=== PATIENT | female | born 1960 | race American Indian/Alaskan Native ===

== ENCOUNTER 2016-10-25 10:03 | Outpatient (CLI) | payer BC ==
[2016-10-25 10:38] LABS: Basophils % (Auto) 1.3 % (0.0-1.8); Eosinophils % (Auto) 1.9 % (0.0-4.3); Hematocrit 38.8 % (30.3-42.9); Hemoglobin 13.2 gm/dl (10.1-14.3); Mean Corpuscular HGB Conc 34 % (30-34); Mean Corpuscular Hemoglobin 31 pg (28-32); Mean Corpuscular Volume 90 fl (79-97); Platelet Count 224 K/mm3 (140-440); Red Blood Count 4.33 M/mm3 (3.65-5.03); Red Cell Distribution Width 13.3 % (13.2-15.2); White Blood Count 4.6 K/mm3 (4.5-11.0)
[2016-10-25 10:47] LABS: Alanine Aminotransferase 17 units/L (7-56); Albumin 4.3 g/dL (3.9-5); Albumin/Globulin Ratio 1.2 %; Alkaline Phosphatase 55 units/L (35-129); Anion Gap 14 mmol/L; BUN/Creatinine Ratio 16.66; Bilirubin,Total 0.6 mg/dL (0.1-1.2); Blood Urea Nitrogen 15 mg/dL (7-17); Calcium 9.9 mg/dL (8.4-10.2); Carbon Dioxide 31 mmol/L (22-30); Chloride 99.5 mmol/L (98-107); Cholesterol 251 mg/dL (50-199); Glucose 91 mg/dL (65-100); HDL Cholesterol 69 mg/dL (40-59); LDL Cholesterol,Direct 170 mg/dL (50-130); Potassium 3.8 mmol/L (3.6-5.0); Sodium 141 mmol/L (137-145); Total Protein 7.9 g/dL (6.3-8.2); Triglycerides 64 mg/dL (2-149)
== END 2016-10-25 10:04 | disposition home or self-care (01) ==
LOC: LAB 10:03
PROVIDERS: ATTEND Internal Medicine
DX: I10 Essential (primary) hypertension (principal); R53.81 Other malaise; R53.83 Other fatigue; E78.2 Mixed hyperlipidemia; E03.8 Other specified hypothyroidism
CPT/HCPCS: 36415; 80053; 80061; 84439; 84443; 85025

== ENCOUNTER 2018-07-23 13:54 | Outpatient (CLI) | payer BC ==
--- NOTE | 2018-07-24 09:37 | Mammography Report ---
BILATERAL DIGITAL SCREENING MAMMOGRAM with CAD and DIGITAL BREAST TOMOSYNTHESIS (DBT) : 07/23/18 14:30:00 CLINICAL: Routine screening. COMPARISON:07/27/14 FINDINGS: The breasts are heterogeneously dense, which may obscure small masses. No mass, architectural distortion or suspicious calcifications. IMPRESSION: No mammographic evidence of malignancy. BI-RADS CATEGORY: 1 - - Negative RECOMMENDATION: Routine mammographic screening in one year. COMMENT: Patient follow-up letters are generated by our [employer] application.
== END 2018-07-23 13:55 | disposition home or self-care (01) ==
LOC: SPVWC 13:54
PROVIDERS: ATTEND Obstetrics & Gynecology
DX: Z12.31 Encounter for screening mammogram for malignant neoplasm of breast (principal)
CPT/HCPCS: 77063; 77067

== ENCOUNTER 2018-12-03 10:35 | Emergency (ER) | payer BC ==
--- NOTE | 2018-12-03 11:20 | Emergency Department Report ---
Blank Doc - Documentation Documentation: This is a 58-year-old female that presents with bilateral lower ext swelling. Stated has PCP and was put on lasix but is not working. Denies any CP. Stated has some shortness of breathe when walking. This initial assessment diagnostic orders/clinical plan/treatment(s) is/are subject to change based on patient's health status, clinical progression and re- assessment by fellow clinical providers in the ED. Further treatment and workup at subsequent clinical providers discretion. Patient/guardians urged not to elope from ED s their condition may be serious if not clinically assessed and managed. Initial orders include: 1-Patient sent to [facility] for further evaluation and treatment 2- Labs 3- UA
[2018-12-03 11:22] VITALS: BP 124/78
--- NOTE | 2018-12-03 12:08 | Emergency Department Report ---
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 The patient has a history of hypertension for which she used to be on Exforge. This caused a rash so she was switched to Toprol and Norvasc. This was not working well enough for her blood pressure so she was switched to Procardia and Norvasc. She believes that these medications have been causing the edema. She is actually taking the Procardia to treat her blood pressure. She was given some Lasix by her primary care physician to try and diurese but has not been working sufficiently. For the past week she has been taking the Lasix for a total of 80 mg. Her primary care physician is Dr. Tolbert. She spoke to her shaker out, Dr. Keller, who told her to come to the emergency department for further evaluation. Patient denies any chest pain but does complain of some intermittent shortness of breath with exertion. No recent travel or sick contacts at home. ED Past Medical Hx - Past Medical History Previous Medical History?: Yes Hx Hypertension: Yes Additional medical history: hypothyroid - Surgical History Past Surgical History?: Yes Additional Surgical History: sinus surgery. hysterectomy. x 3 - Social History Smoking Status: Never Smoker Substance Use Type: None - Medications Home Medications: Home Medications Medication Instructions Recorded Confirmed Last Taken Type Hydralazine HCl 50 mg PO BID #60 tablet 12/03/18 Unknown Rx Losartan [Cozaar] 100 mg PO QDAY #30 tablet 12/03/18 Unknown Rx ED Review of Systems ROS: Stated complaint: SWOLLEN FEET/ANKLE Other details as noted in HPI Comment: All other systems reviewed and negative Constitutional: denies: chills, fever Eyes: denies: eye pain, vision change ENT: denies: ear pain, throat pain Respiratory: SOB with exertion. denies: cough Cardiovascular: edema. denies: chest pain Gastrointestinal: denies: abdominal pain, vomiting Genitourinary: denies: dysuria, discharge Musculoskeletal: denies: back pain, arthralgia Skin: denies: rash, lesions Neurological: denies: headache, weakness Physical Exam - Physical Exam Vital Signs: Vital Signs 12/03/18 11:19 Temperature 97.8 F Pulse Rate 82 Respiratory 20 Rate Blood Pressure 124/78 O2 Sat by Pulse 99 Oximetry Physical Exam: GENERAL: The patient is well-developed well-nourished. HEENT: Normocephalic. Atraumatic. Patient has moist mucous membranes. EYES: Extraocular motions are intact. Pupils are equal and reactive to light bilaterally. NECK: Supple. Trachea is midline. CHEST/LUNGS: Clear to auscultation. There is no respiratory distress noted. HEART/CARDIOVASCULAR: Regular. There is no tachycardia. There is no obvious murmur. ABDOMEN: Abdomen is soft, nontender. Patient has normal bowel sounds. There is no abdominal distention. SKIN: Skin is warm and dry. There is mild to moderate bilateral lower extremity nonpitting swelling. No skin color change, warmth or erythema. NEURO: The patient is awake, alert, and oriented. The patient is cooperative. The patient has no focal neurologic deficits. The patient has normal speech. MUSCULOSKELETAL: There is no tenderness or deformity. There is no limitation range of motion. There is no evidence of acute injury. ED Course Vital Signs 12/03/18 11:19 Temperature 97.8 F Pulse Rate 82 Respiratory 20 Rate Blood Pressure 124/78 O2 Sat by Pulse 99 Oximetry ED Medical Decision Making - Lab Data Result diagrams: 12/03/18 11:52 12/03/18 11:52 - EKG Data -: EKG Interpreted by Me EKG shows normal: sinus rhythm, axis (left axis deviation), intervals, QRS complexes (LVH), ST-T waves Rate: normal - EKG Data When compared to previous EKG there are: previous EKG unavailable Interpretation: LVH - Radiology Data Radiology results: report reviewed, image reviewed interpreted by me: Chest x-ray does not show any pneumothorax, pleural effusion, pneumonia or ob vious focal consolidation. EXAM: CT ANGIO CHEST HISTORY: SOB, elevated dimer TECHNIQUE: CTA of the chest was performed after the administration of intravenous contrast. Rotating MIPS were included. 100 cc of Omnipaque 350 intravenous contrast were given. Reconstructions were included in the coronal and sagittal planes. PRIORS: None. FINDINGS: Pulmonary arteries and thoracic aorta: The study is adequate for diagnostic purposes. No central or segmental pulmonary embolism. The thoracic aorta is normal in caliber. Lungs and airways: No pleural effusion. No airspace consolidation. The airways are patent. No bronchiectasis. There is a 5 millimeter right middle lobe pulmonary nodule on series 3, image 134. There is a 4 millimeter right middle lobe pulmonary nodule on series 3, image 141. There is a 5 millimeter left lower lobe pulmonary nodule on series 3, image 173. There is a 6 millimeter left lower lobe pulmonary nodule on series 3, image 101. Mediastinum, heart, pericardium: No mediastinal lymphadenopathy. No cardiac chamber enlargement. No pericardial effusion. Thoracic inlet, chest wall, axilla: No chest wall masses. The visualized portions of the thyroid gland demonstrate no focal lesion. No axillary lymphadenopathy. Upper abdomen: Cholelithiasis is seen. The common bile duct is dilated measuring up to 7 millimeters. Liver is diffusely heterogeneous in attenuation with numerous focal rounded hyper enhancing lesions scattered throughout the parenchyma. These lesions measure between 3 and 5 millimeters. Bones: Degenerative changes are seen in the spine. IMPRESSION: 1. No central or segmental pulmonary embolism. 2. Multiple bilateral pulmonary nodules. In a low risk patient, recommend followup chest CT at 3-6 months then consider chest CT at 18-24 months. In a high risk patient, recommend followup chest CT at 3-6 months then at 18-24 months. 3. Extensive tiny hyper attenuating liver lesions which are nonspecific although may represent regenerative nodules. Diffuse metastatic disease is not completely excluded. 4. Cholelithiasis with mildly dilated common bile duct. If there is clinical concern for biliary obstruction, further evaluation with MRCP should be considered. Transcribed By: Dictated By: LAKISHA MCPHERSON MD Electronically Authenticated By: LAKISHA MCPHERSON MD Signed Date/Time: 12/03/18 1650 EXAM: VL VENOUS DUPLEX LE BILAT HISTORY: LE pain and swelling TECHNIQUE: Grayscale and color and spectral Doppler ultrasound imaging of the bilateral lower extremities was performed for the purposes of assessing for deep venous thrombosis. PRIORS: None. FINDINGS: No evidence of deep venous thrombosis is seen within the common femoral through the posterior tibial and peroneal veins. Normal compression and color flow is seen throughout the venous system of the bilateral lower extremities. Normal augmentation was seen. IMPRESSION: Negative for bilateral lower extremity deep venous thrombosis. Transcribed By: Dictated By: LAKISHA MCPHERSON MD Electronically Authenticated By: LAKISHA MCPHERSON MD Signed Date/Time: 12/03/18 1440 - Medical Decision Making Patient presents to the emergency department with complaint of bilateral lower extremity edema. She, and her shaker out Dr Keller, think it is related to the hydrochlorothiazide and/or Procardia that she was previously on. The patient, who has contacted her shaker out, he is recommended patient to start on losartan 100 mg per day and hydralazine 50 mg twice daily. The patient's labs were mostly unremarkable except for a slightly elevated dimer level. Normal CBC, metabolic panel and proBNP. Patient was given a dose of Lasix here via IV with some diuresis. Because of the occasional shortness of breath, the lower extremity swelling, the patient had a bilateral venous Doppler that was negative for DVT. She also had a CT angiography of the chest that did not show any pulmonary embolism but did show the incidental findings of pulmonary nodules and some cholelithiasis. It also read that there is a borderline enlargement of the bile duct. The patient has no elevation in her LFTs, alkaline phosphatase, bilirubin. She has no abdominal pain, back pain. It does not appear high suspicion for choledocholithiasis and there are no signs of cholecystitis. The patient will be discharged home with the new blood pressure medications. She will follow up with her primary care physician, shaker out and claims correspondence clerk. She will return to the ER with any worsening of her symptoms or any acute distress. - Differential Diagnosis CHF, venous stasis, DVT, PE Critical Care Time: No Critical care attestation.: If time is entered above; I have spent that time in minutes in the direct care of this critically ill patient, excluding procedure time. ED Disposition Clinical Impression: Pulmonary nodules, Asymptomatic cholelithiasis, Bilateral lower extremity edema Disposition: DC-01 TO HOME OR SELFCARE Is pt being admited?: No Condition: Stable Instructions: Cholelithiasis (ED), Leg Edema (ED), Pulmonary Nodules (ED) Additional Instructions: Please follow-up with your primary care physician, claims correspondence clerk and shaker out. Return to the emergency Department with any worsening of your symptoms or any acute distress. You are starting two different new blood pressure medications, losartan and hydralazine. Keep a blood pressure log. Prescriptions: Hydralazine HCl 50 mg PO BID #60 tablet Losartan [Cozaar] 100 mg PO QDAY #30 tablet Referrals: SYDNEY TOLBERT MD [Primary Care Provider] - 3-5 Days AYLA OLGUIN MD [Staff Physician] - 3-5 Days CLARISSE KELLER MD [Staff Physician] - 3-5 Days Time of Disposition: 17:07
[2018-12-03 12:32] LABS: Basophils # (Auto) 0.1 K/mm3 (0.0-0.1); Basophils % (Auto) 1.2 % (0.0-1.8); Eosinophils # (Auto) 0.1 K/mm3 (0.0-0.4); Eosinophils % (Auto) 2.3 % (0.0-4.3); Hematocrit 41.5 % (30.3-42.9); Hemoglobin 14.1 gm/dl (10.1-14.3); Lymphocytes # (Auto) 2.9 K/mm3 (1.2-5.4); Lymphocytes % (Auto) 49.1 % (13.4-35.0); Mean Corpuscular HGB Conc 34 % (30-34); Mean Corpuscular Volume 89 fl (79-97); Monocytes # (Auto) 0.4 K/mm3 (0.0-0.8); Monocytes % (Auto) 7.4 % (0.0-7.3); Platelet Count 275 K/mm3 (140-440); Red Blood Count 4.64 M/mm3 (3.65-5.03); Red Cell Distribution Width 14.9 % (13.2-15.2)
[2018-12-03 12:37] LABS: Alanine Aminotransferase 23 units/L (7-56); Albumin 4.4 g/dL (3.9-5); BUN/Creatinine Ratio 16; Blood Urea Nitrogen 13 mg/dL (7-17); Calcium 10.1 mg/dL (8.4-10.2); Hemolysis Index 27
[2018-12-03] MEDS ORDERED: LASIX IV ONE (12:43)
--- NOTE | 2018-12-03 14:01 | XRay Report ---
ROUTINE CHEST, TWO VIEWS: HISTORY: Short of breath. The trachea, heart, mediastinal contour, lung camacho and bony thorax are unremarkable. IMPRESSION: Unremarkable chest x-ray.
--- NOTE | 2018-12-03 14:40 | Vascular Lab Report ---
FINAL REPORT EXAM: VL VENOUS DUPLEX LE BILAT HISTORY: LE pain and swelling TECHNIQUE: Grayscale and color and spectral Doppler ultrasound imaging of the bilateral lower extrem ities was performed for the purposes of assessing for deep venous thrombosis. PRIORS: None. FINDINGS: No evidence of deep venous thrombosis is seen within the common femoral through the posterior tibial and peroneal veins. Normal compression and color flow is seen throughout the venous system of the tara ateral lower extremities. Normal augmentation was seen. IMPRESSION: Negative for bilateral lower extremity deep venous thrombosis.
--- NOTE | 2018-12-03 16:50 | Cat Scan Report ---
FINAL REPORT EXAM: CT ANGIO CHEST HISTORY: SOB, elevated dimer TECHNIQUE: CTA of the chest was performed after the administration of intravenous contrast. Rotating MIPS were included. 100 cc of Omnipaque 350 intravenous contrast were given. Reconstructions were included in the coronal and sagittal planes. PRIORS: None. FINDINGS: Pulmonary arteries and thoracic aorta: The study is adequate for diagnostic purposes. No central or s egmental pulmonary embolism. The thoracic aorta is normal in caliber. Lungs and airways: No pleural effusion. No airspace consolidation. The airways are patent. No bronchi ectasis. There is a 5 millimeter right middle lobe pulmonary nodule on series 3, image 134. There is a 4 millimeter right middle lobe pulmonary nodule on series 3, image 141. There is a 5 millimeter lef t lower lobe pulmonary nodule on series 3, image 173. There is a 6 millimeter left lower lobe pulmona ry nodule on series 3, image 101. Mediastinum, heart, pericardium: No mediastinal lymphadenopathy. No cardiac chamber enlargement. No p ericardial effusion. Thoracic inlet, chest wall, axilla: No chest wall masses. The visualized portions of the thyroid glan d demonstrate no focal lesion. No axillary lymphadenopathy. Upper abdomen: Cholelithiasis is seen. The common bile duct is dilated measuring up to 7 millimeters. Liver is diffusely heterogeneous in attenuation with numerous focal rounded hyper enhancing lesions scattered throughout the parenchyma. These lesions measure between 3 and 5 millimeters. Bones: Degenerative changes are seen in the spine. IMPRESSION: 1. No central or segmental pulmonary embolism. 2. Multiple bilateral pulmonary nodules. In a low risk patient, recommend followup chest CT at 3-6 mo nths then consider chest CT at 18-24 months. In a high risk patient, recommend followup chest CT at 3 -6 months then at 18-24 months. 3. Extensive tiny hyper attenuating liver lesions which are nonspecific although may represent regene rative nodules. Diffuse metastatic disease is not completely excluded. 4. Cholelithiasis with mildly dilated common bile duct. If there is clinical concern for biliary obst ruction, further evaluation with MRCP should be considered.
== END 2018-12-03 17:41 | disposition home or self-care (01) ==
LOC: ED 10:35
DX: R60.0 Localized edema (principal); R91.1 Solitary pulmonary nodule; K80.20 Calculus of gallbladder without cholecystitis without obstruction; I10 Essential (primary) hypertension; E03.9 Hypothyroidism, unspecified; Z88.6 Allergy status to analgesic agent; Z88.0 Allergy status to penicillin; Z88.8 Allergy status to other drugs, medicaments and biological substances; Z90.710 Acquired absence of both cervix and uterus
CPT/HCPCS: 36415; 71046; 71275; 80053; 83880; 84484; 85025; 85379; 93005; 93010; 93970; 96374; 99284; J1940; Q9967

== ENCOUNTER 2018-12-07 00:40 | Inpatient (IN) | payer BC ==
--- NOTE | 2018-12-07 02:06 | XRay Report ---
FINAL REPORT PROCEDURE: XR CHEST 1V AP TECHNIQUE: Chest radiograph anteroposterior view. CPT 54083 HISTORY: Dyspnea COMPARISON: No prior studies are available for comparison. FINDINGS: Heart: Normal. Mediastinum/Vessels: Normal. Lungs/Pleural space: Normal. Bony thorax: No acute osseous abnormality. Life support devices: None. IMPRESSION: No acute cardiopulmonary abnormality.
[2018-12-07 02:17] LABS: Basophils # (Auto) 0.1 K/mm3 (0.0-0.1); Basophils % (Auto) 1.2 % (0.0-1.8); Eosinophils # (Auto) 0.2 K/mm3 (0.0-0.4); Eosinophils % (Auto) 2.6 % (0.0-4.3); Hemoglobin 14.4 gm/dl (10.1-14.3); Lymphocytes # (Auto) 2.4 K/mm3 (1.2-5.4); Lymphocytes % (Auto) 32.5 % (13.4-35.0); Mean Corpuscular HGB Conc 34 % (30-34); Mean Corpuscular Volume 92 fl (79-97); Monocytes # (Auto) 0.6 K/mm3 (0.0-0.8); Monocytes % (Auto) 8.2 % (0.0-7.3); Platelet Count 205 K/mm3 (140-440); Red Blood Count 4.68 M/mm3 (3.65-5.03)
[2018-12-07 02:25] LABS: BUN/Creatinine Ratio 16; Blood Urea Nitrogen 14 mg/dL (7-17); Calcium 9.4 mg/dL (8.4-10.2); Hemolysis Index 43
[2018-12-07] MEDS ORDERED: NITRO-BID 2% TP ONE (02:29)
[2018-12-07] MEDS ORDERED: SUBLIMAZE IV ONE (02:29)
[2018-12-07] MEDS ORDERED: ZOFRAN IV ONE (02:29)
[2018-12-07] MEDS ORDERED: PLAVIX PO ONE (02:30)
--- NOTE | 2018-12-07 02:35 | Emergency Department Report ---
HPI - General Chief Complaint: Dyspnea/Respdistress Time Seen by Provider: 12/07/18 02:13 - HPI HPI: Room 26 The patient is a 58-year-old female presenting with a chief complaint chest pain and shortness of breath. The patient states she was recent started on a new blood pressure medication which includes losartan and hydralazine. The patient states Friday (12/06/2018) at noon she took her medication as prescribed and began to feel dizzy and nauseous with a headache. Patient states her heart rate increased and her blood pressure was found to be 158/79. Patient states her symptoms began to resolve at approximately 15:00. The patient states again this evening at approximately 23:00 she took her medication as prescribed and she then developed substernal chest tightness associated with shortness of breath and nausea. The patient states the chest tightness has been intermittent. Patient states she felt near syncopal. EMS was called. Patient states her blood pressure was found to be in the 200s systolic popping her to come to the ED. Patient states she still has chest tightness and gives it a score of 4/10. Patient states she's never had a cardiac catheterization Location: Chest Duration: [See above] Quality: Tightness Severity: [See above] Modifying factors: [see above] Context: [see above] Mode of transportation: [not driving] ED Past Medical Hx - Past Medical History Previous Medical History?: Yes Hx Hypertension: Yes Additional medical history: hypothyroid - Surgical History Past Surgical History?: Yes Additional Surgical History: sinus surgery. hysterectomy. x 3 - Family History Family history: no significant - Social History Smoking Status: Never Smoker Substance Use Type: None (denies illicit drug use), Alcohol (occasional) - Medications Home Medications: Home Medications Medication Instructions Recorded Confirmed Last Taken Type Hydralazine HCl 50 mg PO BID #60 tablet 12/03/18 Unknown Rx Losartan [Cozaar] 100 mg PO QDAY #30 tablet 12/03/18 Unknown Rx ED Review of Systems ROS: Stated complaint: CHEST PAIN/SOB Other details as noted in HPI Constitutional: denies: diaphoresis Eyes: denies: eye pain ENT: denies: throat pain Respiratory: shortness of breath Cardiovascular: chest pain, palpitations Endocrine: no symptoms reported Gastrointestinal: nausea. denies: vomiting Genitourinary: denies: dysuria Musculoskeletal: denies: back pain Neurological: headache Physical Exam - Physical Exam Vital Signs: Vital Signs 12/07/18 12/07/18 12/07/18 01:00 01:07 01:16 Temperature 98.7 F Pulse Rate 102 H 98 H 93 H Respiratory 13 16 12 Rate Blood Pressure 171/76 Blood Pressure 171/76 [Right] O2 Sat by Pulse 98 Oximetry 12/07/18 12/07/18 01:31 01:45 Temperature Pulse Rate 91 H 101 H Respiratory 13 19 Rate Blood Pressure 171/76 176/84 Blood Pressure [Right] O2 Sat by Pulse Oximetry Physical Exam: GENERAL: The patient is well-developed well-nourished female lying on stretcher not appearing to be in acute distress. [] HEENT: Normocephalic. Atraumatic. Extraocular motions are intact. Patient has moist mucous membranes. NECK: Supple. Trachea midline CHEST/LUNGS: Clear to auscultation. There is no respiratory distress noted. HEART/CARDIOVASCULAR: Regular. There is no tachycardia. There is no gallop rub or murmur. ABDOMEN: Abdomen is soft, nontender. Patient has normal bowel sounds. There is no abdominal distention. SKIN: There is no rash. There is no edema. There is no diaphoresis. NEURO: The patient is awake, alert, and oriented. The patient is cooperative. The patient has normal speech MUSCULOSKELETAL: There is no evidence of acute injury. ED Course Vital Signs 12/07/18 12/07/18 12/07/18 01:00 01:07 01:16 Temperature 98.7 F Pulse Rate 102 H 98 H 93 H Respiratory 13 16 12 Rate Blood Pressure 171/76 Blood Pressure 171/76 [Right] O2 Sat by Pulse 98 Oximetry 12/07/18 12/07/18 01:31 01:45 Temperature Pulse Rate 91 H 101 H Respiratory 13 19 Rate Blood Pressure 171/76 176/84 Blood Pressure [Right] O2 Sat by Pulse Oximetry ED Medical Decision Making - Lab Data Result diagrams: 12/07/18 01:27 12/07/18 01:27 Laboratory Tests 12/07/18 12/07/18 12/07/18 01:27 01:27 01:27 WBC 7.5 RBC 4.68 Hgb 14.4 H Hct 43.0 H MCV 92 MCH 31 MCHC 34 RDW 15.0 Plt Count 205 Lymph % (Auto) 32.5 [place] % (Auto) 8.2 H Eos % (Auto) 2.6 Baso % (Auto) 1.2 Lymph # 2.4 [place] # 0.6 Eos # 0.2 Baso # 0.1 Seg Neutrophils % 55.5 Seg Neutrophils # 4.2 Sodium 140 Potassium 3.8 Chloride 108.9 H BUN 14 Creatinine 0.9 Estimated GFR > 60 BUN/Creatinine Ratio 16 Glucose 131 H Calcium 9.4 Troponin T < 0.010 - EKG Data -: EKG Interpreted by Me EKG shows normal: sinus rhythm Rate: tachycardia (102 bpm) - EKG Data When compared to previous EKG there are: previous EKG unavailable Interpretation: other (no ischemic changes seen) - Radiology Data Radiology results: report reviewed (chest x-ray), image reviewed (chest x-ray) interpreted by me: Chest x-ray-no focal infiltrates, no pneumothorax Findings [facility] [address] [place] [address] XRay Report Signed Patient: KIRBY MARQUEZ MR#: [id number] : 1960 Acct:[id number] Age/Sex: 58 / F ADM Date: 12/07/18 Loc: ED Attending Dr: Ordering Physician: ED MD ALEXIA Date of Service: 12/07/18 Procedure(s): XR chest 1V ap Accession Number(s): [id number] cc: ED MD ALEXIA Fluoro Time In Minutes: FINAL REPORT PROCEDURE: XR CHEST 1V AP TECHNIQUE: Chest radiograph anteroposterior view. CPT 36534 HISTORY: Dyspnea COMPARISON: No prior studies are available for comparison. FINDINGS: Heart: Normal. Mediastinum/Vessels: Normal. Lungs/Pleural space: Normal. Bony thorax: No acute osseous abnormality. Life support devices: None. IMPRESSION: No acute cardiopulmonary abnormality. Transcribed By: CO Dictated By: MAGALYS TAYLOR MD Electronically Authenticated By: MAGALYS TAYLOR MD Signed Date/Time: 12/07/18205 DD/ 4 TD/TT: 12/07/18204 - Differential Diagnosis adverse reaction to medication, ACS, pericarditis, GERD Critical care attestation.: If time is entered above; I have spent that time in minutes in the direct care of this critically ill patient, excluding procedure time. ED Disposition Clinical Impression: Chest pain Disposition: DC-09 OP ADMIT IP TO THIS HOSP Is pt being admited?: Yes Does the pt Need Aspirin: No Condition: Fair Instructions: Chest Pain (ED) Referrals: PRIMARY CARE,MD [Primary Care Provider] - 3-5 Days Time of Disposition: 02:40 (hospitalist paged (Dr. Missy Woods))
[2018-12-07] MEDS ORDERED: TYLENOL PO PRN (04:16)
[2018-12-07] MEDS ORDERED: ZOFRAN IV PRN (04:16)
[2018-12-07] MEDS ORDERED: MORPHINE IV PRN (04:16)
[2018-12-07] MEDS ORDERED: SODIUM CHLORIDE FLUSH SYRINGE 10 ML IV PRN (04:16)
--- NOTE | 2018-12-07 04:20 | History and Physical Report ---
History of Present Illness Date of examination: 12/07/18 History of present illness: 58 year old woman with a history of hypertension, hypothyroidism, emergency room for evaluation. She was taken off hydrochlorothiazide and started on hydralazine by Dr. Keller which she started taking Friday, she took 2 doses last yesterday, every 12 hours apart. She developed dizziness, palpitation, nausea after the second dose and also chest pain. She also complaining of right jaw pain, her symptoms have improved Review of systems Constitutional: no weight loss, chills, fever Ears, eyes, nose, mouth and throat: no nasal congestion, no nasal discharge, no sinus pressure, no vision change, no red eye. Neck: No neck pain or rigidity. Cardiovascular: + palpitations, chest pain Respiratory: no cough, shortness of breath Gastrointestinal: no hematochezia, abdominal pain Genitourinary : no frequency , no hematuria Musculoskeletal: no joint swelling or muscle ache Integumentary: no rash, no pruritis Neurological: no parathesias, no focal weakness Endocrine: no cold or heat intolerance, no polyuria or polydipsia Hematologic/Lymphatic: no easy bruising, no easy bleeding, no gland swelling Allergic/Immunologic: no urticaria, no angioedema. PAST MEDICAL HISTORY: hypertension, hypothyroidism, PAST SURGICAL HISTORY: Hysterectomy, sinus, 4 SOCIAL HISTORY: Denies alcohol, drugs, tobacco FAMILY HISTORY: Hypertension Medications and Allergies Allergies Allergy/AdvReac Type Severity Reaction Status Date / Time aspirin Allergy Dizziness Verified 12/03/18 10:45 meperidine HCl [From Demerol] Allergy Hives Verified 12/03/18 10:45 Penicillins Allergy Unknown Verified 12/03/18 10:45 HCTZ Allergy Hives Uncoded 12/03/18 10:45 Home Medications Medication Instructions Recorded Confirmed Last Taken Type Hydralazine HCl 50 mg PO BID #60 tablet 12/03/18 Unknown Rx Losartan [Cozaar] 100 mg PO QDAY #30 tablet 12/03/18 Unknown Rx Exam - Physical Exam Narrative exam: General Apperance: The patient lying in bed, breathing comfortable HEENT: Normocephalic, atraumatic. Pupils equally round and reactive to light, EOMI, no sclericterus or JVD or thyromegaly or nodule. , no carotid bruit, mucous membranes moist, no exudate or erythema Heart: S1-S2, regular is rhythm Lungs: Clear to auscultation bilaterally, breathing comfortable Abdomen: Positive bowel sounds, soft, nontender, nondistended, no organomegaly Extremities: No edema cyanosis clubbing Skin: no rash, nodule, warm and dry Neuro: cranial nerves 2-12 intact, speech is fluent, motor/sensory intact - Constitutional Vitals: Temp Pulse Resp BP Pulse Ox 98.7 F 90 15 147/83 98 12/07/18 01:07 12/07/18 02:41 12/07/18 02:41 12/07/18 02:15 12/07/18 01:07 Results - Labs CBC & Chem 7: 12/07/18 05:59 12/07/18 01:27 Labs: Abnormal lab results 12/07/18 12/07/18 Range/Units 01:27 01:27 Hgb 14.4 H (10.1-14.3) gm/dl Hct 43.0 H (30.3-42.9) % [place] % (Auto) 8.2 H (0.0-7.3) % Chloride 108.9 H (98-107) mmol/L Carbon Dioxide 21 L D (22-30) mmol/L Glucose 131 H (65-100) mg/dL - Imaging and Cardiology EKG: image reviewed Chest x-ray: image reviewed Assessment and Plan Assessment Side effects of hydralazine Hypertension Hypothyroidism Plan Admit to medicine Check cardiac enzymes, consult cardiology d/c hydralazine DVT prophylaxis, IV morphine
[2018-12-07 06:08] LABS: Basophils # (Auto) 0.1 K/mm3 (0.0-0.1); Basophils % (Auto) 1.1 % (0.0-1.8); Eosinophils # (Auto) 0.1 K/mm3 (0.0-0.4); Eosinophils % (Auto) 2.1 % (0.0-4.3); Hematocrit 37.6 % (30.3-42.9); Hemoglobin 12.8 gm/dl (10.1-14.3); Lymphocytes # (Auto) 2.5 K/mm3 (1.2-5.4); Mean Corpuscular HGB Conc 34 % (30-34); Mean Corpuscular Volume 91 fl (79-97); Monocytes # (Auto) 0.5 K/mm3 (0.0-0.8); Monocytes % (Auto) 8.3 % (0.0-7.3); Platelet Count 234 K/mm3 (140-440); Red Blood Count 4.15 M/mm3 (3.65-5.03); Red Cell Distribution Width 15.1 % (13.2-15.2)
[2018-12-07 06:49] LABS: BUN/Creatinine Ratio 14; Blood Urea Nitrogen 13 mg/dL (7-17); Calcium 9.1 mg/dL (8.4-10.2); Hemolysis Index 8
[2018-12-07] MEDS: COZAAR PO SCH (10:39)
[2018-12-07] MEDS: LOVENOX SUB-Q SCH (10:40)
[2018-12-07] MEDS: SODIUM CHLORIDE FLUSH SYRINGE 10 ML IV SCH ×2 (10:41→21:15)
--- NOTE | 2018-12-07 10:50 | Consultation ---
History of Present Illness Consult date: 12/07/18 Requesting physician: MARIANNE ALDRICH Consult reason: chest pain History of present illness: The pt is a 58 year old woman with a history of hypertension and hypothyroidism. She is followed by Dr. Keller. She presented for evaluation of possible allergic reaction to new prescription medication. She was recently taken off HCTZ due to hives and started on hydralazine and losartan by Dr. Keller. She started taking these new medications on Friday and was feeling well until yesterday evening when she developed diaphoresis, dizziness, palpitations, headache, nausea and chest pain after taking the second dose of hydralazine. She describes her chest pain as a left-sided squeezing pain which lasted for a few hours and is currently resolved. She also c/o BLE swelling for the past several days. Past History Past Medical History: hypertension, hypothyroidism Medications and Allergies Allergies Allergy/AdvReac Type Severity Reaction Status Date / Time aspirin Allergy Dizziness Verified 12/03/18 10:45 meperidine HCl [From Demerol] Allergy Hives Verified 12/03/18 10:45 Penicillins Allergy Unknown Verified 12/03/18 10:45 HCTZ Allergy Hives Uncoded 12/03/18 10:45 Home Medications Medication Instructions Recorded Confirmed Last Taken Type Hydralazine HCl 50 mg PO BID #60 tablet 12/03/18 12/07/18 Unknown Rx Losartan [Cozaar] 100 mg PO QDAY #30 tablet 12/03/18 12/07/18 Unknown Rx Active Meds: Active Medications Acetaminophen (Tylenol) 650 mg PO Q4H PRN PRN Reason: Pain MILD(1-3)/Fever >100.5/MARTINEZ Enoxaparin Sodium (Lovenox) 40 mg SUB-Q QDAY [facility] Last Admin: 12/07/18 10:40 Dose: 40 mg Documented by: Losartan Potassium (Cozaar) 100 mg PO QDAY [facility] Last Admin: 12/07/18 10:39 Dose: 100 mg Documented by: Morphine Sulfate (Morphine) 2 mg IV Q4H PRN PRN Reason: Pain, Moderate (4-6) Ondansetron HCl (Zofran) 4 mg IV Q8H PRN PRN Reason: Nausea And Vomiting Sodium Chloride (Sodium Chloride Flush Syringe 10 Ml) 10 ml IV BID [facility] Last Admin: 12/07/18 10:41 Dose: 10 ml Documented by: Sodium Chloride (Sodium Chloride Flush Syringe 10 Ml) 10 ml IV PRN PRN PRN Reason: LINE FLUSH Review of Systems Constitutional: sweats, no weight loss, no weight gain, no fever, no chills Ears, nose, mouth and throat: no ear pain, no nose pain, no sinus pressure, no sinus pain Cardiovascular: chest pain, palpitations, edema (BLE), lightheadedness, high blood pressure, no orthopnea, no syncope, no leg edema Respiratory: no cough, no shortness of breath, no dyspnea on exertion, no congestion, no wheezing, no pain on inspiration Gastrointestinal: nausea, no abdominal pain, no vomiting, no diarrhea, no constipation, no change in bowel habits Genitourinary Female: no pelvic pain, no flank pain, no dysuria, no urinary frequency, no urgency Musculoskeletal: no neck stiffness, no neck pain, no shooting arm pain, no arm numbness/tingling, no low back pain, no shooting leg pain Integumentary: no rash, no pruritis, no redness, no sores, no wounds Neurological: headaches, no head injury, no paralysis, no weakness, no parathesias, no numbness, no tingling, no seizures, no syncope Psychiatric: no anxiety Endocrine: no cold intolerance, no heat intolerance Hematologic/Lymphatic: no easy bruising, no easy bleeding Physical Examination Vital Signs Pulse Resp 102 H 13 12/07/18 01:00 12/07/18 01:00 General appearance: no acute distress HEENT: Positive: PERRL, Normocephaly, Mucus Membranes Moist Neck: Positive: neck supple Cardiac: Positive: Reg Rate and Rhythm, S1/S2 Lungs: Positive: clear to auscultation Neuro: Positive: Grossly Intact Abdomen: Positive: Soft. Negative: Tender Skin: Negative: Rash, Wound Musculoskeletal: No Pain Extremities: Present: edema (trace BLE) Results 12/07/18 05:59 12/07/18 05:59 CBC 12/07/18 12/07/18 Range/Units 01:27 05:59 WBC 7.5 5.9 (4.5-11.0) K/mm3 RBC 4.68 4.15 (3.65-5.03) M/mm3 Hgb 14.4 H 12.8 (10.1-14.3) gm/dl Hct 43.0 H 37.6 (30.3-42.9) % Plt Count 205 234 (140-440) K/mm3 Lymph # 2.4 2.5 (1.2-5.4) K/mm3 [place] # 0.6 0.5 (0.0-0.8) K/mm3 Eos # 0.2 0.1 (0.0-0.4) K/mm3 Baso # 0.1 0.1 (0.0-0.1) K/mm3 Comprehensive Metabolic Panel 12/07/18 12/07/18 Range/Units 01:27 05:59 Sodium 140 140 (137-145) mmol/L Potassium 3.8 3.9 (3.6-5.0) mmol/L Chloride 108.9 H 108.8 H (98-107) mmol/L Carbon Dioxide 21 L D 22 (22-30) mmol/L BUN 14 13 (7-17) mg/dL Creatinine 0.9 0.9 (0.7-1.2) mg/dL Glucose 131 H 107 H (65-100) mg/dL Calcium 9.4 9.1 (8.4-10.2) mg/dL - Imaging and Cardiology Echo: pending EKG: report reviewed, image reviewed EKG interpretations - Telemetry EKG Rhythm: Sinus Rhythm - EKG Sinus rhythms and dysrhythmias: sinus rhythm Assessment and Plan Pt presented with atypical chest pain after developing suspected allergic reaction to hydralazine. Chest pain currently resolved. AMI ruled out. F/u echo. The patient has been seen in conjunction with Dr. Gambino who agrees with the assessment and plan of care. - Patient Problems (1) Allergic reaction caused by a drug Current Visit: Yes Status: Acute (2) Chest pain Current Visit: Yes Status: Acute (3) Headache Current Visit: Yes Status: Acute (4) HTN (hypertension) Current Visit: Yes Status: Chronic (5) History of hypothyroidism Current Visit: Yes Status: Chronic
--- NOTE | 2018-12-07 22:20 | Event Note ---
Date: 12/07/18 Patient seen and examined. No acute distress at this time. Resting comfortably, Cardiology following. continue current management
--- NOTE | 2018-12-08 10:09 | Progress Note ---
Assessment and Plan Pt presented with atypical chest pain after developing suspected allergic reaction to hydralazine. Chest pain currently resolved. AMI ruled out. echo reviewed - EF 55-60%, no significant abnormalities. Currently stable cardiac status. Pt may discharge home from cardiology standpoint on current cardiac regimen. Recommend pt follow up in our office with Dr. Keller within 1-2 weeks of hospital discharge ([phone]). The patient has been seen in conjunction with Dr. Gambino who agrees with the assessment and plan of care. - Patient Problems (1) Allergic reaction caused by a drug Current Visit: Yes Status: Acute (2) Chest pain Current Visit: Yes Status: Acute (3) Headache Current Visit: Yes Status: Acute (4) HTN (hypertension) Current Visit: Yes Status: Chronic (5) History of hypothyroidism Current Visit: Yes Status: Chronic Subjective Date of service: 12/08/18 Principal diagnosis: cp Interval history: pt resting in bed, no current complaints. states she is feeling much better today. Objective Last Vital Signs Temp 97.9 F 12/08/18 04:28 Pulse 67 12/08/18 08:36 Resp 20 12/08/18 08:36 BP 128/71 12/08/18 04:28 Pulse Ox 98 12/08/18 04:28 - Physical Examination General: No Apparent Distress HEENT: Positive: PERRL, Normocephaly, Mucus Membranes Moist Neck: Positive: neck supple Cardiac: Positive: Reg Rate and Rhythm, S1/S2 Lungs: Positive: clear to auscultation Neuro: Positive: Grossly Intact Abdomen: Positive: Soft. Negative: Tender Skin: Negative: Rash, Wound Musculoskeletal: No Pain Extremities: Present: edema (trace BLE) - Imaging and Cardiology EKG: report reviewed, image reviewed Echo: report reviewed - Telemetry EKG Rhythm: Sinus Rhythm - EKG Sinus rhythms and dysrhythmias: sinus rhythm
[2018-12-08] MEDS: COZAAR PO SCH (10:17)
[2018-12-08] MEDS: LOVENOX SUB-Q SCH (10:18)
[2018-12-08] MEDS: SODIUM CHLORIDE FLUSH SYRINGE 10 ML IV SCH (10:19)
--- NOTE | 2018-12-08 13:26 | Discharge Summary ---
Providers - Providers Date of Admission: 12/07/18 06:12 Date of discharge: 12/08/18 Attending physician: KESHA HUSSEIN 12/07/18 04:16 Consult to Physician [CONS] Routine Comment: Consulting Provider: CLARISSE KELLER Physician Instructions: Reason For Exam: cp Primary care physician: SYDNEY TOLBERT Hospitalization Condition: Fair Hospital course: Patient is 58 year old with a history of hypertension, hypothyroidism. She pressented to ED for evaluation. Patient states she was taken off hydrochlorothiazide and started on hydralazine by Dr. Keller which she started taking few days prior to presentation, she took 2 doses 12 hours apart, as prescribed. She developed dizziness, palpitation, nausea after the second dose and also chest pain. She also complaining of right jaw pain. she therefore came in for evaluation. Initital Troponin was normal. Hydralazibe was discontinued. She was admitted, evaluated byCardiology. Symptoms resolved and she was discharged home following day 12/08/18 to follow as outpatient. She was advised not to continue Hydralazine. Total time spent on discharge,31 mins Disposition: DC-01 TO HOME OR SELFCARE - Discharge Diagnoses (1) Allergic reaction caused by a drug Status: Acute (2) Chest pain Status: Acute (3) HTN (hypertension) Status: Chronic (4) History of hypothyroidism Status: Chronic Core Measure Documentation - Palliative Care Palliative Care/ Comfort Measures: Not Applicable - Core Measures Any of the following diagnoses?: none Exam - Constitutional Vitals: Temp Pulse Resp BP Pulse Ox 98.0 F 68 18 141/75 98 12/08/18 11:36 12/08/18 11:36 12/08/18 11:36 12/08/18 11:36 12/08/18 11:36 Plan Activity: no restrictions Diet: low fat, low cholesterol, low salt Additional Instructions: 1.Follow up with PCP in 1 week. 2.Follow up with Dr. Keller, Cardiology in 1 week. Follow up with: PRIMARY CARE, [Referring] - 3-5 Days Forms: Work/School Release Form
[2018-12-08 14:50] VITALS: BP 135/68
== END 2018-12-08 15:28 | disposition home or self-care (01) | DRG 103 ==
LOC: ED 00:40 → 4A 06:12 → 3A 07:10
PROVIDERS: ADMIT Internal Medicine; ATTEND Internal Medicine
DX: R51 Headache (principal); T46.5X5A Adverse effect of other antihypertensive drugs, initial encounter; R07.89 Other chest pain; I10 Essential (primary) hypertension; T78.40XA Allergy, unspecified, initial encounter; E03.9 Hypothyroidism, unspecified; Z90.710 Acquired absence of both cervix and uterus; Z82.49 Family history of ischemic heart disease and other diseases of the circulatory system; Z88.0 Allergy status to penicillin; Z88.8 Allergy status to other drugs, medicaments and biological substances; Y92.098 Other place in other non-institutional residence as the place of occurrence of the external cause
CPT/HCPCS: 36415; 71045; 80048; 84484; 85025; 93005; 93010; 93306; G0378; J1650; J2405; J3010

== ENCOUNTER 2018-12-23 10:35 | Outpatient (CLI) | payer BC ==
--- NOTE | 2018-12-23 13:31 | Ultrasound Report ---
ULTRASOUND ABDOMEN LIMITED: TECHNIQUE: Transabdominal ultrasound with color Doppler interrogation. HISTORY: Dilated common bile duct. COMPARISON: none. FINDINGS: LIVER: Normal. BILIARY SYSTEM: The gallbladder is partially contracted and contains multiple shadowing gallstones. No secondary findings of acute cholecystitis. The common bile duct is dilated up to 7.5 mm. PANCREAS: Normal. RIGHT KIDNEY: Normal. PROXIMAL AORTA: Normal. ASCITES: None. IMPRESSION: Cholelithiasis. Dilated common bile duct measuring 7.5 mm although no obvious choledocholithiasis is demonstrated. Consider further evaluation with MRCP.
== END 2018-12-23 10:36 | disposition home or self-care (01) ==
LOC: US 10:35
PROVIDERS: ATTEND Internal Medicine
DX: K80.20 Calculus of gallbladder without cholecystitis without obstruction (principal); K83.8 Other specified diseases of biliary tract; I10 Essential (primary) hypertension; Z90.710 Acquired absence of both cervix and uterus; J45.909 Unspecified asthma, uncomplicated
CPT/HCPCS: 76705

== ENCOUNTER 2018-12-31 11:40 | Outpatient (CLI) | payer BC ==
[2018-12-31 12:19] LABS: Blood Urea Nitrogen 13 mg/dL (7-17)
--- NOTE | 2018-12-31 14:27 | Magnetic Resonance Report ---
MR ABDOMEN WITH AND WITHOUT CONTRAST HISTORY: Dilated common bile duct. TECHNIQUE: Multisequence, multiplanar MRI without contrast. Thin and thick slab MRCP images. Radial MRCP images. Postcontrast dynamic imaging. FINDINGS: Right upper quadrant ultrasound dated 12/23/18 was again reviewed. MRCP images demonstrate a normal-appearing common bile duct on today's exam. There is no evidence for filling defect or abnormal dilatation. The CBD measures 4.4 mm on MRCP. There are however numerous filling defects in the gallbladder consistent with gallstones. No evidence for biliary dilatation or inflammation. The liver, pancreas, spleen, adrenal glands, aorta and visualized bowel loops are unremarkable. Normal appendix. The kidneys are normal size and position. There are a few tiny millimetric cysts in both kidneys. No hydronephrosis. No evidence for ascites, adenopathy or inflammatory changes. No abnormal enhancement is demonstrated following IV gadolinium. IMPRESSION: Cholelithiasis. The common bile duct is normal on today's MRCP images. Recently passed gallstone? Tiny renal cysts. Otherwise, unremarkable MR abdomen with and without contrast.
== END 2018-12-31 11:41 | disposition home or self-care (01) ==
LOC: MRI 11:40
PROVIDERS: ATTEND Internal Medicine
DX: K80.20 Calculus of gallbladder without cholecystitis without obstruction (principal); N28.1 Cyst of kidney, acquired; I10 Essential (primary) hypertension; E03.9 Hypothyroidism, unspecified; J45.909 Unspecified asthma, uncomplicated; Z90.710 Acquired absence of both cervix and uterus
CPT/HCPCS: 36415; 74183; 82565; 84520; A9577

== ENCOUNTER 2019-05-26 15:00 | Emergency (ER) | payer BC ==
[2019-05-26 15:10] VITALS: BP 166/92
--- NOTE | 2019-05-26 15:10 | Event Note ---
ED Screening Note Date of service: 05/26/19 Time: 15:06 ED Screening Note: This is a 59 y.o. F. that presents with left lateral foot pain. 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 Patient reports pain is worse with weight bearing. This initial assessment/diagnostic orders/clinical plan/treatment(s) is/are subject to change based on patients health status, clinical progression and re- assessment by fellow clinical providers in the ED. Further treatment and workup at subsequent clinical providers discretion. Patient/guardian urged not to elope from the ED as their condition may be serious if not clinically assessed and managed. Initial orders include: XR of left foot
--- NOTE | 2019-05-26 15:40 | XRay Report ---
Left foot, 3 views INDICATION: Lateral left foot pain for one day. COMPARISON: None. IMPRESSION: No acute osseous or soft tissue abnormality. No significant DJD. Signer Name: Kvng Almazan Jr, MD Signed: 05/26/2019 3:36 PM Workstation Name: [id number]
[2019-05-26] MEDS ORDERED: IBUPROFEN PO ONE (16:49)
--- NOTE | 2019-05-26 16:54 | Emergency Department Report ---
ED Lower Extremity HPI - General Chief Complaint: Extremity Injury, Lower Stated Complaint: LT FOOT INJURY Time Seen by Provider: 05/26/19 15:05 Source: patient Mode of arrival: Ambulatory Limitations: No Limitations - History of Present Illness Initial Comments: This is a 59-year-old female nontoxic, well nourished in appearance, no acute signs of distress presents to the ED with c/o of left foot pain x1 day. Patient stated that she hit her foot at work. Patient denies any other trauma. Patient denies any numbness, tingling, fever, chills, nausea, vomiting, chest pain, shortness of breath, headache, stiff neck. Patient denies any joint swelling or joint redness. Patient denies decreased range of motion. Patient stated has decreased gait due to pain. Patient stated allergies to aspirin, Meperidine, and PCN, HCTZ but denies any allergies to motrin. -: This evening Injury: Foot: Left Place: work Severity: mild Severity scale (0 -10): 8 Improves With: immobilization Worsens With: weight bearing, palpation Context: direct blow Associated Symptoms: swelling, able to partially bear weight, ambulatory. denies: snap/pop sensation, numbness, tingling, unable to bear weight - Related Data Previous Rx's Medication Instructions Recorded Last Taken Type Losartan [Cozaar] 100 mg PO QDAY #30 tablet 12/03/18 Unknown Rx Acetaminophen/Codeine [Tylenol 1 tab PO Q6H PRN #12 tab 05/26/19 Unknown Rx /Codeine # 3 tab] Ibuprofen [Motrin] 600 mg PO Q8H PRN #20 tablet 05/26/19 Unknown Rx Allergies Allergy/AdvReac Type Severity Reaction Status Date / Time aspirin Allergy Dizziness Verified 12/03/18 10:45 meperidine HCl [From Demerol] Allergy Hives Verified 12/03/18 10:45 Penicillins Allergy Unknown Verified 12/03/18 10:45 HCTZ Allergy Hives Uncoded 12/03/18 10:45 ED Review of Systems ROS: Stated complaint: LT FOOT INJURY Other details as noted in HPI Constitutional: denies: chills, fever Eyes: denies: eye pain, eye discharge, vision change ENT: denies: ear pain, throat pain Respiratory: denies: cough, shortness of breath, wheezing Cardiovascular: denies: chest pain, palpitations Endocrine: no symptoms reported Gastrointestinal: denies: abdominal pain, nausea, diarrhea Genitourinary: denies: urgency, dysuria, discharge Musculoskeletal: denies: back pain, joint swelling, arthralgia Skin: denies: rash, lesions Neurological: denies: headache, weakness, paresthesias Psychiatric: denies: anxiety, depression Hematological/Lymphatic: denies: easy bleeding, easy bruising ED Past Medical Hx - Past Medical History Previous Medical History?: Yes Hx Hypertension: Yes Hx Congestive Heart Failure: No Hx Diabetes: No Hx Asthma: Yes ( A CHILD) Hx COPD: No Hx HIV: No Additional medical history: hypothyroid - Surgical History Past Surgical History?: Yes Additional Surgical History: sinus surgery. hysterectomy. x 3 - Social History Smoking Status: Never Smoker Substance Use Type: None - Medications Home Medications: Home Medications Medication Instructions Recorded Confirmed Last Taken Type Losartan [Cozaar] 100 mg PO QDAY #30 tablet 12/03/18 12/07/18 Unknown Rx Acetaminophen/Codeine [Tylenol 1 tab PO Q6H PRN #12 tab 05/26/19 Unknown Rx /Codeine # 3 tab] Ibuprofen [Motrin] 600 mg PO Q8H PRN #20 tablet 05/26/19 Unknown Rx ED Physical Exam - General Limitations: No Limitations General appearance: alert, in no apparent distress - Head Head exam: Present: atraumatic, normocephalic - Neck Neck exam: Present: normal inspection, full ROM - Extremities Exam Extremities exam: Present: normal inspection, full ROM, tenderness, normal capillary refill. Absent: joint swelling - Expanded Lower Extremity Exam Left Hip exam: Present: normal inspection, full ROM Upper Leg exam: Present: normal inspection, full ROM Knee exam: Present: normal inspection, full ROM Lower Leg exam: Present: normal inspection, full ROM. Absent: tenderness, swelling Ankle exam: Present: normal inspection, full ROM. Absent: tenderness, swelling, abrasion, laceration, ecchymosis, deformity, crepidus, dislocation, erythema, anterior draw sign Foot/Toe exam: Present: normal inspection, full ROM, tenderness, swelling, ecchymosis. Absent: abrasion, laceration, deformity, crepidus, dislocation, erythema, amputation, puncture wound, foreign body, calcaneal tenderness, tenderness at base of 5th metatarsal, nail avulsion, subungual hematoma Neuro vascular tendon exam: Present: no vascular compromise Gait: Positive: observed and limited by pain - Back Exam Back exam: Present: normal inspection, full ROM - Neurological Exam Neurological exam: Present: alert, oriented X3 - Psychiatric Psychiatric exam: Present: normal affect, normal mood - Skin Skin exam: Present: warm, dry, intact, normal color. Absent: rash ED Course Vital Signs 05/26/19 15:08 Temperature 97.9 F Pulse Rate 81 Respiratory 18 Rate Blood Pressure 166/92 O2 Sat by Pulse 99 Oximetry - Reevaluation(s) Reevaluation #1: 05/26/19 16:52 Patient is speaking in full sentences with no signs of distress noted. ED Lower Extremity MDM - Medical Decision Making This is a 59-year-old female that presents with left foot sprain. Patient is stable and was examined by me. I referred patient to an orthopedic doctor for further evaluation for possible MRI. X-ray has been obtained and dictated by the radiologist. Patient is notified of the x-ray report with noted by the patient. Patient does have normal gait with no tenderness and no joint swelling. No ecchymosis. no joint redness or swelling. Not warm to touch. No signs of cellulites present. Patient received a ortho shoe. Patient was instructed to RICE therapy. Patient received Motrin for pain. Patient is discharged with Motrin. At time of discharge, the patient does not seem toxic or ill in appearance. No acute signs of distress noted. Patient agrees to discharge treatment plan of care. No further questions noted by the patient. Critical care attestation.: If time is entered above; I have spent that time in minutes in the direct care of this critically ill patient, excluding procedure time. ED Disposition Clinical Impression: Sprain of left foot Qualifiers: Encounter type: initial encounter Qualified Code(s): S93.602A - Unspecified sprain of left foot, initial encounter Disposition: - TO HOME OR SELFCARE Is pt being admited?: No Does the pt Need Aspirin: No Condition: Stable Instructions: RICE Therapy (ED), Acetaminophen/Codeine (By mouth) Additional Instructions: Follow-up with a orthopedic doctor in 3-5 days or if symptoms worsen and continue return to emergency room as soon as possible. Do not operate any machinery while taking Tylenol with codeine as this may cause drowsiness. Prescriptions: Ibuprofen [Motrin] 600 mg PO Q8H PRN #20 tablet PRN Reason: Pain Acetaminophen/Codeine [Tylenol /Codeine # 3 tab] 1 tab PO Q6H PRN #12 tab PRN Reason: Pain , Severe (7-10) Referrals: [facility] MD TODD [Primary Care Provider] - 3-5 Days PRIMARY CAREMD [Referring] - 3-5 Days KELSY BONILLA MD [Staff Physician] - 3-5 Days [facility] [Outside] - 3-5 Days [facility] [Outside] - 3-5 Days Forms: Work/School Release Form(ED)
== END 2019-05-26 17:23 | disposition home or self-care (01) ==
LOC: ED 15:00
DX: S93.602A Unspecified sprain of left foot, initial encounter (principal); I10 Essential (primary) hypertension; J45.909 Unspecified asthma, uncomplicated; E03.9 Hypothyroidism, unspecified; Z90.710 Acquired absence of both cervix and uterus; Z79.899 Other long term (current) drug therapy; Z98.890 Other specified postprocedural states; Z88.6 Allergy status to analgesic agent; Z88.1 Allergy status to other antibiotic agents; Z88.0 Allergy status to penicillin; Z88.8 Allergy status to other drugs, medicaments and biological substances; W22.8XXA Striking against or struck by other objects, initial encounter; Y93.89 Activity, other specified; Y92.69 Other specified industrial and construction area as the place of occurrence of the external cause; Y99.8 Other external cause status

== ENCOUNTER 2020-03-23 09:47 | Outpatient (CLI) | payer BC ==
[2020-03-23 11:54] LABS: BUN/Creatinine Ratio 16; Blood Urea Nitrogen 14 mg/dL (7-17); Calcium 10.7 mg/dL (8.4-10.2); Hemolysis Index 19
--- NOTE | 2020-03-23 14:01 | Cat Scan Report ---
CT chest w con INDICATION: MULTIPLE LUNG NODULES. TECHNIQUE: All CT scans at this location are performed using the following dose modulation technique: Automated exposure control. Helical slices were obtained through the chest. 100 cc of Omnipaque 300 is administ ered COMPARISON: CT scan dated 12/03/2018 FINDINGS: Pulmonary nodules appear unchanged from the prior exam. 2 nodules in the right middle lobe measure 5 mm and 4 mm respectively and are unchanged. There is a 5 mm nodule in the right lower lobe, series 2 image 87 which is unchanged.. There is a 6 mm nodule in the superior segment of the left lower lobe w hich is unchanged. No new pulmonary nodules or masses are identified. On review of mediastinum, no acute osseous abnormalities are seen in the thoracic aorta is normal in diameter. No acute abnormality is seen in the upper abdomen. Bone windows, no acute osseous abnormalities are seen. IMPRESSION: 1. Previously noted pulmonary nodules are stable. No new abnormalities are seen. One year follow-up chest CT is recommended. Signer Name: Vin Carbone MD Signed: 03/23/2020 1:57 PM Workstation Name: [id number]
== END 2020-03-23 09:48 | disposition home or self-care (01) ==
LOC: CT 09:47
PROVIDERS: ATTEND Internal Medicine
DX: R91.1 Solitary pulmonary nodule (principal)
CPT/HCPCS: 36415; 71260; 80048; Q9967

== ENCOUNTER 2020-04-10 12:02 | Outpatient (CLI) | payer BC ==
[2020-04-10 13:47] LABS: Alanine Aminotransferase 17 units/L (7-56); Albumin 4.5 g/dL (3.9-5); BUN/Creatinine Ratio 15; Blood Urea Nitrogen 15 mg/dL (7-17); Calcium 10.8 mg/dL (8.4-10.2)
[2020-04-10 13:48] LABS: HDL Cholesterol 54 mg/dL (40-59); LDL Cholesterol,Direct 156 mg/dL (50-130)
== END 2020-04-10 12:03 | disposition home or self-care (01) ==
LOC: LAB 12:02
PROVIDERS: ATTEND Internal Medicine
DX: E03.9 Hypothyroidism, unspecified (principal); I10 Essential (primary) hypertension
CPT/HCPCS: 36415; 80053; 80061; 84439; 84443; 84480

== ENCOUNTER 2020-08-10 11:21 | Outpatient (CLI) | payer BC ==
--- NOTE | 2020-08-10 15:45 | Mammography Report ---
DEXA BONE DENSITY SCAN INDICATION / CLINICAL INFORMATION: V49.81 ASYMP POSTMENOPAUSAL STATUS. 60 years Female COMPARISON: 10/29/2016. LUMBAR SPINE, L1-L4: - Bone mineral density (BMD) = 0.967 g/cm2. - T-score = -0.7 - Z-score = -0.1 Change (%) since most recent prior (if available): Decrease of 5.7% LEFT HIP, NECK : - Bone mineral density (BMD) = 0.551 g/cm2. - T-score = -2.7 - Z-score = -1.8 Change (%) since most recent prior (if available): Not available. IMPRESSION: WHO Classification: Osteoporosis. Fracture Risk: High. BMD Reporting Guidelines (ISCD, 2015) BMD Reporting in Postmenopausal Women and in Men Age 50 and Older * T-scores are preferred. * The WHO densitometric classification is applicable. BMD Reporting in Females Prior to Menopause and in Males Younger Than Age 50 * Z-scores, not T-scores, are preferred. This is particularly important in children. * A Z-score of -2.0 or lower is defined as below the expected range for age, and a Z-score above -2. 0 is within the expected range for age. * Osteoporosis cannot be diagnosed in men under age 50 on the basis of BMD alone. * The WHO diagnostic criteria may be applied to women in the menopausal transition. http://www.iscd.org/official-positions/4530-iwur-ymcxkznl-positions-adult/ Signer Name: Moose Medina MD Signed: 08/10/2020 3:41 PM Workstation Name: [id number]
--- NOTE | 2020-08-11 09:09 | Mammography Report ---
DIGITAL SCREENING MAMMOGRAM WITH CAD, 08/10/2020 INDICATION: Routine screening mammography. Z12.31 SCREENING TECHNIQUE: Digital bilateral 2D mammography was obtained in the craniocaudal and mediolateral obliq ue projections. This examination was interpreted with the benefit of Computer-Aided Detection analysi s. COMPARISON: 07/23/2018 FINDINGS: Breast Density: The breasts are heterogeneously dense, which may obscure small masses. There is no evidence of dominant mass, suspicious calcifications or architectural distortion in eithe r breast. IMPRESSION: No evidence of malignancy Follow up recommendation: Clinical attention to patient's complaint of burning sensation in the left breast and axilla BI-RADS Category 1: Negative. A "normal" or negative report should not discourage follow up or biopsy of a clinically significant f inding. A written summary of these findings will be mailed to the patient. The patient will be entered into a mammography reporting system which will generate a reminder letter for the patient's next appointmen t at the appropriate interval. The [employer] recommends yearly mammograms starting at age 40 and continuing as l rodney as a woman is in good health. Breast MRI is recommended for women with an approximate 20-25% or greater lifetime risk of breast cancer, including women with a strong family history of breast or ova parvin cancer or who have been treated for Hodgkin's disease. Signer Name: Ej Au MD Signed: 08/11/2020 9:04 AM Workstation Name: [id number]
== END 2020-08-10 11:22 | disposition home or self-care (01) ==
LOC: MAMMO 11:21
PROVIDERS: ATTEND Internal Medicine
DX: Z12.31 Encounter for screening mammogram for malignant neoplasm of breast (principal); Z78.0 Asymptomatic menopausal state
CPT/HCPCS: 77067; 77080

== ENCOUNTER 2021-01-23 09:35 | Outpatient (CLI) | payer BC ==
--- NOTE | 2021-01-23 13:22 | Ultrasound Report ---
ULTRASOUND BREAST BILATERAL COMPLETE, 01/23/2021 CLINICAL INFORMATION / INDICATION: PAIN IN BOTH BREAST. TECHNIQUE: Complete sonographic evaluation of all 4 quadrants and retroareolar region was performed. COMPARISON: Prior mammogram 08/10/2020 FINDINGS: Right breast: Complete ultrasound of the right breast reveals normal fibroglandular tissue. No suspic ious cystic or solid lesion identified. There is no sonographic abnormality of the area of pain in th e 9:00 right breast. Left breast: Complete ultrasound of the left breast reveals normal fibroglandular tissue. No suspicio us cystic or solid lesion identified. There is no sonographic abnormality of the area of pain in the 3:00 left breast. IMPRESSION: 1. No sonographic abnormality to account for the areas of pain in both breasts, therefore clinical co rrelation is recommended. Follow up recommendation: Back to schedule. BI-RADS Category 1: Negative. A normal or "negative" report should not preclude biopsy or follow-up of a clinically suspicious find ing. Signer Name: Meghann Gardner MD Signed: 01/23/2021 1:07 PM Workstation Name: [id number]
== END 2021-01-23 09:36 | disposition home or self-care (01) ==
LOC: US 09:35
PROVIDERS: ATTEND Internal Medicine
DX: N64.4 Mastodynia (principal)

== ENCOUNTER 2021-03-22 09:40 | Emergency (ER) | payer BC ==
[2021-03-22] MEDS ORDERED: MECLIZINE 25 MG TAB PO ONE (10:13)
[2021-03-22] MEDS ORDERED: SODIUM CHLORIDE 0.9% 1000 ML 1,000 ML IV ONE (10:14)
[2021-03-22 10:40] LABS: Basophils % (Auto) 0.8 % (0.0-1.8); Eosinophils # (Auto) 0.1 K/mm3 (0.0-0.4); Eosinophils % (Auto) 2.3 % (0.0-4.3); Hematocrit 38.9 % (30.3-42.9); Hemoglobin 13.3 gm/dl (10.1-14.3); Lymphocytes # (Auto) 2.7 K/mm3 (1.2-5.4); Lymphocytes % (Auto) 49.1 % (13.4-35.0); Mean Corpuscular HGB Conc 34 % (30-34); Mean Corpuscular Volume 93 fl (79-97); Monocytes # (Auto) 0.4 K/mm3 (0.0-0.8); Monocytes % (Auto) 7.4 % (0.0-7.3); Platelet Count 214 K/mm3 (140-440); Red Blood Count 4.17 M/mm3 (3.65-5.03); Red Cell Distribution Width 13.9 % (13.2-15.2)
--- NOTE | 2021-03-22 10:49 | Emergency Department Report ---
ED Dizziness HPI - General Chief Complaint: Dizziness Stated Complaint: HTN/PAIN IN FACE Time Seen by Provider: 03/22/21 09:59 Source: patient Mode of arrival: Ambulatory Limitations: No Limitations - History of Present Illness Initial Comments: 61-year-old female, history of hypertension and vertigo, presents to ED with complaint of dizziness and facial pain. Patient reports onset of vertigo while at work here at [employer]. Patient states felt like everything was spinning and she felt off balance. Patient states this is exactly how it feels when she has had vertigo episodes in the past. She reports mild nausea, no vomiting. Patient also reports moderate pain to the left cheek and mild pain just above the eyes. Patient reports the dizziness is worse with certain positions. She denies any chest pain or shortness of breath. She denies any fever, vomiting or diarrhea, or recent illness. Patient reports she has missed 2 days of her BP meds. MD Complaint: dizziness -: This morning Timing: sudden onset Description: sense of movement, "room spinning", off-balance History of Same: Yes Severity: moderate Improves With: remaining still Worsens With: movement, position Associated Symptoms: denies: chest pain, confusion, fever/chills, shortness of breath - Related Data Previous Rx's Medication Instructions Recorded Last Taken Type Losartan [Cozaar] 100 mg PO QDAY #30 tablet 12/03/18 Unknown Rx Acetaminophen/Codeine [Tylenol 1 tab PO Q6H PRN #12 tab 05/26/19 Unknown Rx /Codeine # 3 tab] Ibuprofen [Motrin] 600 mg PO Q8H PRN #20 tablet 05/26/19 Unknown Rx Azithromycin [Zithromax Z-MARK ANTHONY] 250 mg PO DAILY #6 tablet 04/23/20 Unknown Rx HYDROcodone/ACETAMINOPHEN 15 ml PO Q6H PRN #150 solution 04/23/20 Unknown Rx [Hydrocodon-Acetamin 7.5-325/15] Meclizine [Antivert] 25 mg PO TID PRN #10 tablet 04/23/20 Unknown Rx Promethazine [Phenergan] 25 mg PO Q6HR PRN #10 tab 04/23/20 Unknown Rx predniSONE [Deltasone] 20 mg PO QDAY #5 tab 04/23/20 Unknown Rx Meclizine [Antivert] 25 mg PO TID PRN #20 tablet 03/22/21 Unknown Rx Allergies Allergy/AdvReac Type Severity Reaction Status Date / Time meperidine HCl [From Demerol] Allergy Severe Hives Verified 04/23/20 07:51 aspirin Allergy Dizziness Verified 04/23/20 07:51 Penicillins Allergy Unknown Verified 04/23/20 07:51 HCTZ Allergy Hives Uncoded 12/03/18 10:45 ED Review of Systems ROS: Stated complaint: HTN/PAIN IN FACE Other details as noted in HPI ED Past Medical Hx - Past Medical History Previous Medical History?: Yes Hx Hypertension: Yes Hx Congestive Heart Failure: No Hx Diabetes: No Hx Asthma: No Hx COPD: No Hx HIV: No Additional medical history: hypothyroid - Surgical History Past Surgical History?: Yes Hx Cholecystectomy: Yes Additional Surgical History: sinus surgery. hysterectomy. x 3 - Social History Smoking Status: Never Smoker Substance Use Type: Alcohol - Medications Home Medications: Home Medications Medication Instructions Recorded Confirmed Last Taken Type Losartan [Cozaar] 100 mg PO QDAY #30 tablet 12/03/18 12/07/18 Unknown Rx Acetaminophen/Codeine [Tylenol 1 tab PO Q6H PRN #12 tab 05/26/19 Unknown Rx /Codeine # 3 tab] Ibuprofen [Motrin] 600 mg PO Q8H PRN #20 tablet 05/26/19 Unknown Rx Azithromycin [Zithromax Z-MARK ANTHONY] 250 mg PO DAILY #6 tablet 04/23/20 Unknown Rx HYDROcodone/ACETAMINOPHEN 15 ml PO Q6H PRN #150 solution 04/23/20 Unknown Rx [Hydrocodon-Acetamin 7.5-325/15] Meclizine [Antivert] 25 mg PO TID PRN #10 tablet 04/23/20 Unknown Rx Promethazine [Phenergan] 25 mg PO Q6HR PRN #10 tab 04/23/20 Unknown Rx predniSONE [Deltasone] 20 mg PO QDAY #5 tab 04/23/20 Unknown Rx Meclizine [Antivert] 25 mg PO TID PRN #20 tablet 03/22/21 Unknown Rx ED Physical Exam - General Limitations: No Limitations General appearance: alert, in no apparent distress - Head Head exam: Present: atraumatic, normocephalic - Eye Eye exam: Present: normal appearance, PERRL, EOMI - ENT ENT exam: Present: mucous membranes moist - Neck Neck exam: Present: normal inspection - Respiratory Respiratory exam: Present: normal lung sounds bilaterally. Absent: respiratory distress - Cardiovascular Cardiovascular Exam: Present: regular rate, normal rhythm - GI/Abdominal GI/Abdominal exam: Present: soft. Absent: distended, tenderness - Extremities Exam Extremities exam: Present: normal inspection - Neurological Exam Neurological exam: Present: alert, oriented X3, CN II-XII intact, other ([id number]-ny-jsll, saiy-pv-wljk intact bilaterally; patient experiences vertigo when turning onto her left side). Absent: motor sensory deficit - Psychiatric Psychiatric exam: Present: normal affect, normal mood - Skin Skin exam: Present: warm, dry, intact, normal color ED Course Vital Signs 03/22/21 03/22/21 03/22/21 09:54 10:40 11:16 Temperature 98.5 F Pulse Rate 64 59 L 64 Respiratory 15 15 Rate Blood Pressure 162/69 Blood Pressure 178/85 172/82 [Left] O2 Sat by Pulse 100 97 Oximetry - Reevaluation(s) Reevaluation #1: 03/22/21 12:14 Patient is feeling much better at this time. IV fluids and meclizine given. She states no further waves of vertigo. ED Medical Decision Making - Lab Data Result diagrams: 03/22/21 10:15 03/22/21 10:15 - EKG Data -: EKG Interpreted by Me EKG shows normal: sinus rhythm, axis, intervals, QRS complexes, ST-T waves Rate: normal - EKG Data Interpretation: no acute changes - Radiology Data Radiology results: report reviewed, image reviewed - Medical Decision Making 61-year-old female presents to ED with dizziness. Patient has history of vertigo. States today's episode feels like her previous episodes of vertigo. CT head is normal. Labs are normal. Pressure slightly elevated, patient reports she has not taken her BP meds in 2 days. Patient given her usual dose of Norvasc here in the ED. In addition, she was given IV fluids and meclizine. She is currently feeling much better at this time. Able to ambulate without assistance. Gait is normal. Neuro exam is normal. Patient will be discharged at this time. Outpatient follow-up advised, return precautions given. - Differential Diagnosis Benign positional vertigo, CVA, dehydration Critical care attestation.: If time is entered above; I have spent that time in minutes in the direct care of this critically ill patient, excluding procedure time. ED Disposition Clinical Impression: Vertigo, benign positional Disposition: DC-01 TO HOME OR SELFCARE Is pt being admited?: No Condition: Stable Instructions: Vertigo, [id number] Prescriptions: Meclizine [Antivert] 25 mg PO TID PRN #20 tablet PRN Reason: Vertigo Referrals: PRIMARY CARE, [Primary Care Provider] - 3-5 Days YVETTE VIRAMONTES MD [Referring] - 3-5 Days YOUSIF MERAZ MD [Referring] - 3-5 Days
[2021-03-22 10:52] LABS: BUN/Creatinine Ratio 17; Blood Urea Nitrogen 15 mg/dL (7-17); Calcium 10.4 mg/dL (8.4-10.2); Hemolysis Index 4
[2021-03-22] MEDS: amLODIPine 5 MG TAB PO ONE ×2 (11:11→11:16)
[2021-03-22 11:17] VITALS: BP 162/69
--- NOTE | 2021-03-22 11:37 | Cat Scan Report ---
CT head/brain wo con INDICATION / CLINICAL INFORMATION: 61 years Female; dizziness, facial pain. TECHNIQUE: Routine CT head without contrast. All CT scans at this location are performed using CT dos e reduction for ALARA by means of automated exposure control. COMPARISON: None. FINDINGS: BRAIN / INTRACRANIAL CONTENTS: There is beam hardening artifact resulting from the hairpins. There ar e small foci of calcification within the basal ganglia. There is no clear CT evidence of acute intrac ranial hemorrhage or significant mass effect at. The ventricular system is within normal limits in si ze and configuration. ORBITS: No significant abnormality of visualized orbits. SINUSES / MASTOIDS: No significant abnormality in the visualized paranasal sinuses or mastoid air gamal ls. CRANIOCERVICAL JUNCTION: No significant abnormality. ADDITIONAL FINDINGS: There is a well-corticated lucency within the left frontal calvarium which would appear most consistent with incidental venous ram. IMPRESSION: 1. There is no clear CT evidence of acute intracranial process. Signer Name: Corona Busch MD Signed: 03/22/2021 11:33 AM Workstation Name: [id number]
--- NOTE | 2021-03-29 11:06 | Electrocardiograph Report ---
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
--- NOTE | 2021-03-29 11:06 | Electrocardiograph Report ---
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
== END 2021-03-22 12:40 | disposition home or self-care (01) ==
LOC: ED 09:40
DX: H81.12 Benign paroxysmal vertigo, left ear (principal); I10 Essential (primary) hypertension; R51.9 Headache, unspecified; Z90.49 Acquired absence of other specified parts of digestive tract; Z90.710 Acquired absence of both cervix and uterus; Z72.89 Other problems related to lifestyle; Z88.0 Allergy status to penicillin; Z88.6 Allergy status to analgesic agent; Z88.8 Allergy status to other drugs, medicaments and biological substances; Z79.899 Other long term (current) drug therapy
CPT/HCPCS: 36415; 70450; 80048; 85025; 93005; 96360; 99284; J7030

== ENCOUNTER 2021-09-20 14:29 | Outpatient (CLI) | payer BC ==
--- NOTE | 2021-09-21 16:59 | Mammography Report ---
DIGITAL SCREENING MAMMOGRAM WITH CAD, 09/20/2021 CLINICAL INFORMATION / INDICATION: Routine screening mammography. TECHNIQUE: Digital 2D mammography was obtained in the craniocaudal and mediolateral oblique project ions. This examination was interpreted with the benefit of Computer-Aided Detection analysis. COMPARISON: 07/23/2018, 08/10/2020 FINDINGS: Breast Density: The breasts are heterogeneously dense, which may obscure small masses. No dominant mass, suspicious calcifications, or architectural distortion in either breast. No interval change. IMPRESSION: No mammographic evidence of malignancy. Follow up recommendation: Routine yearly BI-RADS Category 1: Negative. A "normal" or negative report should not discourage follow up or biopsy of a clinically significant f inding. A written summary of these findings will be mailed to the patient. The patient will be entered into a mammography reporting system which will generate a reminder letter for the patient's next appointmen t at the appropriate interval. The [employer] recommends yearly mammograms starting at age 40 and continuing as l rodney as a woman is in good health. Breast MRI is recommended for women with an approximate 20-25% or greater lifetime risk of breast cancer, including women with a strong family history of breast or ova parvin cancer or who have been treated for Hodgkin's disease. Signer Name: Allyn Vyas MD Signed: 09/21/2021 4:55 PM Workstation Name: [id number]
== END 2021-09-20 14:30 | disposition home or self-care (01) ==
LOC: MAMMO 14:29
PROVIDERS: ATTEND Obstetrics & Gynecology
DX: Z12.31 Encounter for screening mammogram for malignant neoplasm of breast (principal)
CPT/HCPCS: 77067

== ENCOUNTER 2022-01-30 11:35 | Outpatient (CLI) | payer BC ==
[2022-01-30 12:34] LABS: Basophils % (Auto) 0.6 % (0.0-1.8); Eosinophils # (Auto) 0.1 K/mm3 (0.0-0.4); Eosinophils % (Auto) 2.2 % (0.0-4.3); Hematocrit 37.5 % (30.3-42.9); Hemoglobin 12.6 gm/dl (10.1-14.3); Lymphocytes # (Auto) 2.5 K/mm3 (1.2-5.4); Lymphocytes % (Auto) 43.5 % (13.4-35.0); Mean Corpuscular HGB Conc 34 % (30-34); Mean Corpuscular Volume 92 fl (79-97); Monocytes # (Auto) 0.5 K/mm3 (0.0-0.8); Platelet Count 234 K/mm3 (140-440); Red Blood Count 4.08 M/mm3 (3.65-5.03); Red Cell Distribution Width 13.7 % (13.2-15.2)
[2022-01-30 12:42] LABS: Alanine Aminotransferase 16 units/L (7-56); Albumin 4.4 g/dL (3.9-5); BUN/Creatinine Ratio 18; Blood Urea Nitrogen 18 mg/dL (7-17); Calcium 10.9 mg/dL (8.4-10.2); Chol/HDL Ratio 4.35 %; HDL Cholesterol 53 mg/dL (40-59); Hemolysis Index 4; LDL Cholesterol,Direct 176 mg/dL (50-130)
== END 2022-01-30 11:36 | disposition home or self-care (01) ==
LOC: LAB 11:35
PROVIDERS: ATTEND Internal Medicine
DX: I10 Essential (primary) hypertension (principal); E78.2 Mixed hyperlipidemia; E03.9 Hypothyroidism, unspecified
CPT/HCPCS: 36415; 80053; 80061; 84436; 84443; 85025

== ENCOUNTER 2022-06-14 09:31 | Emergency (ER) | payer BC ==
[2022-06-14] MEDS ORDERED: SODIUM CHLORIDE 0.9% 1000 ML 1,000 ML IV ONE (12:11)
--- NOTE | 2022-06-14 12:40 | XRay Report ---
CHEST 1 VIEW 06/14/2022 12:26 PM INDICATION / CLINICAL INFORMATION: Altered Mental Status. COMPARISON: None available. FINDINGS: SUPPORT DEVICES: None. HEART / MEDIASTINUM: No significant abnormality. LUNGS / PLEURA: No significant pulmonary or pleural abnormality. No pneumothorax. ADDITIONAL FINDINGS: No significant additional findings. IMPRESSION: No acute abnormality. Signer Name: Kale Granda MD Signed: 06/14/2022 12:36 PM Workstation Name: [id number]
[2022-06-14 12:46] LABS: Basophils % (Auto) 0.4 % (0.0-1.8); Eosinophils # (Auto) 0.2 K/mm3 (0.0-0.4); Eosinophils % (Auto) 3.5 % (0.0-4.3); Hematocrit 36.4 % (30.3-42.9); Hemoglobin 11.8 gm/dl (10.1-14.3); Lymphocytes # (Auto) 2.6 K/mm3 (1.2-5.4); Lymphocytes % (Auto) 41.8 % (13.4-35.0); Mean Corpuscular HGB Conc 33 % (30-34); Mean Corpuscular Volume 94 fl (79-97); Monocytes # (Auto) 0.6 K/mm3 (0.0-0.8); Monocytes % (Auto) 9.2 % (0.0-7.3); Platelet Count 239 K/mm3 (140-440); Red Blood Count 3.88 M/mm3 (3.65-5.03); Red Cell Distribution Width 13.8 % (13.2-15.2)
[2022-06-14 13:09] LABS: BUN/Creatinine Ratio 18; Blood Urea Nitrogen 23 mg/dL (7-17); Calcium 10.6 mg/dL (8.4-10.2); Hemolysis Index 9
--- NOTE | 2022-06-14 13:18 | Cat Scan Report ---
CT HEAD WITHOUT CONTRAST INDICATION / CLINICAL INFORMATION: Altered Mental Status. TECHNIQUE: Axial imaging performed from the skull apex through the skull base without the use of cont rast. Sagittal and coronal reformatted images. All CT scans at this location are performed using CT dose reduction for ALARA by means of automated exposure control. COMPARISON: 03/22/2021 FINDINGS: CEREBRAL PARENCHYMA: No significant abnormality. No acute territorial infarct. HEMORRHAGE: None. EXTRA-AXIAL SPACES: Normal in size and morphology for the patient's age. VENTRICULAR SYSTEM: Normal in size and morphology for the patient's age. MIDLINE SHIFT OR HERNIATION: None. CEREBELLUM / BRAINSTEM: No significant abnormality. CALVARIUM: No significant abnormality. ORBITS: Normal as visualized. PARANASAL SINUSES / MASTOID AIR CELLS: Normal as visualized. SOFT TISSUES of HEAD: No significant abnormality. ADDITIONAL FINDINGS: None. IMPRESSION: No acute intracranial abnormality. No change since 03/22/2021 exam. Signer Name: Kvng Almazan Jr, MD Signed: 06/14/2022 1:13 PM Workstation Name: [id number]
--- NOTE | 2022-06-14 13:43 | Electrocardiograph Report ---
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
[2022-06-14 13:58] LABS: INR 0.88 (0.87-1.13)
--- NOTE | 2022-06-14 16:12 | Emergency Department Report ---
ED Dizziness HPI - General Chief Complaint: Dizziness Stated Complaint: FEELING FAINT/LIGHT HEADED Time Seen by Provider: 06/14/22 12:07 Source: patient Mode of arrival: Ambulatory Limitations: No Limitations - History of Present Illness Initial Comments: eeling lightheaded and fatigued x2 days Pt recently diagnosed with ear infection, states feeling off balance Complaint: dizziness, lightheadedness -: Gradual, hour(s) Timing: gradual onset Description: lightheadedness History of Same: No History of Trauma: No Severity: moderate Improves With: nothing Worsens With: nothing Associated Symptoms: denies: denies other symptoms, ataxia, chest pain, confusion, cough - Related Data Previous Rx's Medication Instructions Recorded Last Taken Type Losartan [Cozaar] 100 mg PO QDAY #30 tablet 12/03/18 Unknown Rx Acetaminophen/Codeine [Tylenol 1 tab PO Q6H PRN #12 tab 05/26/19 Unknown Rx /Codeine # 3 tab] Ibuprofen [Motrin] 600 mg PO Q8H PRN #20 tablet 05/26/19 Unknown Rx Azithromycin [Zithromax Z-MARKA NTHONY] 250 mg PO DAILY #6 tablet 04/23/20 Unknown Rx HYDROcodone/ACETAMINOPHEN 15 ml PO Q6H PRN #150 solution 04/23/20 Unknown Rx [Hydrocodon-Acetamin 7.5-325/15] Meclizine [Antivert] 25 mg PO TID PRN #10 tablet 04/23/20 Unknown Rx Promethazine [Phenergan] 25 mg PO Q6HR PRN #10 tab 04/23/20 Unknown Rx predniSONE [Deltasone] 20 mg PO QDAY #5 tab 04/23/20 Unknown Rx Meclizine [Antivert] 25 mg PO TID PRN #20 tablet 03/22/21 Unknown Rx Allergies Allergy/AdvReac Type Severity Reaction Status Date / Time meperidine HCl [From Demerol] Allergy Severe Hives Verified 04/23/20 07:51 aspirin Allergy Dizziness Verified 04/23/20 07:51 Penicillins Allergy Unknown Verified 04/23/20 07:51 HCTZ Allergy Hives Uncoded 12/03/18 10:45 ED Review of Systems ROS: Stated complaint: FEELING FAINT/LIGHT HEADED Other details as noted in HPI Constitutional: denies: chills, fever Eyes: denies: eye pain, eye discharge, vision change ENT: denies: ear pain, throat pain Respiratory: denies: cough, shortness of breath, wheezing Cardiovascular: denies: chest pain, palpitations Endocrine: no symptoms reported Gastrointestinal: denies: abdominal pain, nausea, diarrhea Genitourinary: denies: urgency, dysuria, discharge Musculoskeletal: denies: back pain, joint swelling, arthralgia Skin: denies: rash, lesions Neurological: denies: headache, weakness, paresthesias Psychiatric: denies: anxiety, depression Hematological/Lymphatic: denies: easy bleeding, easy bruising ED Past Medical Hx - Past Medical History Hx Hypertension: Yes Hx Congestive Heart Failure: No Hx Diabetes: No Hx Asthma: No Hx COPD: No Hx HIV: No Additional medical history: hypothyroid, hyperlipidemia - Surgical History Hx Cholecystectomy: Yes Additional Surgical History: sinus surgery. hysterectomy. x 3 - Social History Smoking Status: Never Smoker Substance Use Type: Alcohol - Medications Home Medications: Home Medications Medication Instructions Recorded Confirmed Last Taken Type Losartan [Cozaar] 100 mg PO QDAY #30 tablet 12/03/18 12/07/18 Unknown Rx Acetaminophen/Codeine [Tylenol 1 tab PO Q6H PRN #12 tab 05/26/19 Unknown Rx /Codeine # 3 tab] Ibuprofen [Motrin] 600 mg PO Q8H PRN #20 tablet 05/26/19 Unknown Rx Azithromycin [Zithromax Z-MARK ANTHONY] 250 mg PO DAILY #6 tablet 04/23/20 Unknown Rx HYDROcodone/ACETAMINOPHEN 15 ml PO Q6H PRN #150 solution 04/23/20 Unknown Rx [Hydrocodon-Acetamin 7.5-325/15] Meclizine [Antivert] 25 mg PO TID PRN #10 tablet 04/23/20 Unknown Rx Promethazine [Phenergan] 25 mg PO Q6HR PRN #10 tab 04/23/20 Unknown Rx predniSONE [Deltasone] 20 mg PO QDAY #5 tab 04/23/20 Unknown Rx Meclizine [Antivert] 25 mg PO TID PRN #20 tablet 03/22/21 Unknown Rx ED Physical Exam - General Limitations: No Limitations General appearance: alert, in no apparent distress - Head Head exam: Present: atraumatic, normocephalic - Eye Eye exam: Present: normal appearance - ENT ENT exam: Present: mucous membranes moist - Neck Neck exam: Present: normal inspection - Respiratory Respiratory exam: Present: normal lung sounds bilaterally. Absent: respiratory distress - Cardiovascular Cardiovascular Exam: Present: regular rate, normal rhythm. Absent: systolic murmur, diastolic murmur, rubs, gallop - GI/Abdominal GI/Abdominal exam: Present: soft, normal bowel sounds - Extremities Exam Extremities exam: Present: normal inspection - Back Exam Back exam: Present: normal inspection - Neurological Exam Neurological exam: Present: alert, oriented X3 - Psychiatric Psychiatric exam: Present: normal affect, normal mood - Skin Skin exam: Present: warm, dry, intact, normal color. Absent: rash ED Course Vital Signs 06/14/22 06/14/22 06/14/22 10:07 12:02 12:16 Temperature 98.4 F Pulse Rate 75 75 61 Respiratory 18 16 13 Rate Blood Pressure 122/70 Blood Pressure 113/63 [Left] O2 Sat by Pulse 99 100 Oximetry 06/14/22 06/14/22 06/14/22 12:30 12:46 13:00 Temperature Pulse Rate 63 55 L 59 L Respiratory 13 16 14 Rate Blood Pressure 122/70 112/70 122/70 Blood Pressure [Left] O2 Sat by Pulse 89 100 100 Oximetry 06/14/22 06/14/22 06/14/22 13:16 13:30 13:46 Temperature Pulse Rate 61 64 52 L Respiratory 12 16 15 Rate Blood Pressure 112/70 112/70 109/65 Blood Pressure [Left] O2 Sat by Pulse 100 100 99 Oximetry 06/14/22 06/14/22 06/14/22 14:00 14:09 14:16 Temperature Pulse Rate 65 62 57 L Respiratory 13 17 12 Rate Blood Pressure 112/70 109/65 Blood Pressure 109/65 [Left] O2 Sat by Pulse 100 99 100 Oximetry 06/14/22 06/14/22 06/14/22 14:31 14:45 15:01 Temperature Pulse Rate 70 60 66 Respiratory 21 16 17 Rate Blood Pressure 121/71 121/71 Blood Pressure [Left] O2 Sat by Pulse 99 100 99 Oximetry ED Medical Decision Making - Lab Data Result diagrams: 06/14/22 10:56 06/14/22 10:56 - EKG Data -: EKG Interpreted by Pr EKG shows normal: sinus rhythm Rate: normal - Radiology Data Radiology results: report reviewed, image reviewed - Medical Decision Making work up negative vss , no distress , fl;uids given imrpoved , head ct nromal Critical care attestation.: If time is entered above; I have spent that time in minutes in the direct care of this critically ill patient, excluding procedure time. ED Disposition Clinical Impression: Dizziness Disposition: HOME / SELF CARE / HOMELESS Is pt being admited?: No Does the pt Need Aspirin: No Condition: Stable Instructions: Dizziness, [id number], Dizziness Referrals: GAVI BAUMANN MD [Primary Care Provider] - 3-5 Days
[2022-06-14 17:07] LABS: Alanine Aminotransferase 21 units/L (7-56); Albumin 4.3 g/dL (3.9-5)
[2022-06-14 17:08] VITALS: BP 114/68
[2022-06-14 17:26] LABS: Bilirubin,Direct < 0.2 mg/dL (0-0.2)
== END 2022-06-14 17:09 | disposition home or self-care (01) ==
LOC: ED 09:31
DX: R42 Dizziness and giddiness (principal); I10 Essential (primary) hypertension; Z88.0 Allergy status to penicillin; Z91.09 Other allergy status, other than to drugs and biological substances; Z90.49 Acquired absence of other specified parts of digestive tract; Z79.899 Other long term (current) drug therapy
CPT/HCPCS: 36415; 70450; 71045; 80048; 80076; 82010; 82550; 83880; 84484; 85025; 85610; 93005; 96360; 99284; J7030; 96374